=== PATIENT | male | born 1955 | race Caucasian/White ===

== ENCOUNTER 2021-10-10 08:16 | Outpatient (REF) | payer MEDICARE, BC, SELFPAY ==
--- NOTE | ~2021-10-10 | CT_ITS ---
EXAMINATION: CT ABDOMEN AND PELVIS WITHOUT AND WITH CONTRAST CLINICAL INFORMATION: Renal cyst COMPARISON: Previous renal ultrasound July 2021 TECHNIQUE: Multidetector volumetric imaging was performed of the abdomen and pelvis before and after the IV administration of 85 mL of 592 intravenous contrast. Sagittal and coronal reformatted images were obtained on the technologist's workstation. This CT examination was performed using dose optimization techniques as appropriate, variously including the following: *Automated exposure control *Adjustment of mA and/or kV according to patient size (this includes techniques or standardized protocols for targeted exams where dose is matched to indication/reason for exam; i.e. extremities or head) *Use of iterative reconstruction technique DLP: 592 mGy-cm FINDINGS: LUNG BASES: There is a 3 mm calcified right lower lobe nodule axial image 23 series 3 probably representing a calcified granuloma. The lung bases are otherwise clear. LIVER, GALLBLADDER, AND BILIARY TREE: The liver is normal in size, shape, and attenuation. No focal hepatic lesion or biliary ductal dilatation is present. The gallbladder is unremarkable with no evidence of radiopaque gallstones, gallbladder wall thickening, or obvious pericholecystic inflammatory changes. PANCREAS: Unremarkable SPLEEN: Unremarkable ADRENAL GLANDS: Unremarkable KIDNEYS AND URETERS: Both kidneys are small, right kidney measuring 9.4 and left 8.3 cm in length. There is a 1.5 x 1 cm cyst in the lower pole of the right kidney. This has a small focus of wall calcification. Hounsfield units precontrast measure 2. Hounsfield units postcontrast measure 9. This demonstrates no evidence of enhancement. There are additional smaller bilateral renal cortical cysts measuring up to 5 mm in the lower pole of the left kidney. No imaging follow-up is indicated. BLADDER: Unremarkable GASTROINTESTINAL TRACT: There is stool throughout the colon questionable for constipation. The small and large bowel are otherwise unremarkable. The appendix is is not seen. ABDOMINAL WALL: No significant hernia is appreciated. LYMPH NODES: Normal VASCULAR: Unremarkable PELVIC VISCERA: Unremarkable OSSEOUS STRUCTURES: Unremarkable CT/CT abdomen pelvis wo/w con IMPRESSION: Small kidneys. Multiple bilateral renal cysts. Largest cyst is a minimally complex Bosniak type II F cyst in the lower pole right kidney with small focus of wall calcification measuring 1 x 1.5 cm. Fleischner guidelines were followed.
[2021-10-10 10:18] LABS: Blood Urea Nitrogen 37 mg/dL (9-16); Estimated Glomerular Filt Rate 44
[2021-10-10] MEDS: iohexoL 350 MG/ML 100 ML INFUS..BTL 85 ML IV (11:39)
== END 2021-10-10 08:17 | disposition home or self-care (01) ==
LOC: HO.CT 08:16
PROVIDERS: Radiology Diagnostic Radiology; Visit Provider Family Medicine
DX: N28.1 Cyst of kidney, acquired (principal)
CPT/HCPCS: 36415; 74178; 82565; 84520; Q9967

== ENCOUNTER 2022-09-27 15:05 | Outpatient (REF) | payer MEDICARE, BC, SELFPAY ==
--- NOTE | ~2022-09-27 | XR_ITS ---
EXAMINATION: XR LUMBOSACRAL SPINE WITH OBLIQUES CLINICAL INFORMATION: Spinal stenosis with neurogenic claudication. COMPARISON: None available. TECHNIQUE: AP, both oblique, and lateral views of the lumbar spine. FINDINGS: There is bony demineralization. Vertebral body heights and alignment are normal. There is well-maintained alignment at L4-L5, status-post posterior fusion and discectomy. Intact posterior fixator rods, pedicular screws and a disc spacer are seen. Slight loosening is seen of one of the L4 pedicular screws. There is no hardware failure. The remaining disc spaces are well-maintained. There is multi-level mild lumbar spondylosis. There are mild aortic atherosclerotic calcifications. XR/XR lumbar spine 4V min IMPRESSION: 1. There is well-maintained alignment status-post L4-L5 posterior fusion and discectomies. No hardware failure is seen. Slight loosening is suspected of one of the L4 pedicular screws. 2. There is multi-level mild lumbar spondylosis.
== END 2022-09-27 15:06 | disposition home or self-care (01) ==
LOC: HO.HOSX 15:05
PROVIDERS: Visit Provider Neurological Surgery
DX: M48.062 Spinal stenosis, lumbar region with neurogenic claudication (principal); Z98.1 Arthrodesis status
CPT/HCPCS: 72110; 99211

== ENCOUNTER 2022-12-18 13:08 | Outpatient (REF) | payer MEDICARE, SELFPAY ==
--- NOTE | ~2022-12-18 | US_ITS ---
EXAMINATION: ARTERIAL DUPLEX BILATERAL LEGS CLINICAL INFORMATION: Peripheral arterial disease COMPARISON: None TECHNIQUE: Duplex Doppler of the bilateral lower extremity arterial systems was performed. FINDINGS: RIGHT: Common femoral: PSV 72 cm/s. Triphasic waveform. Deep femoral: PSV 51 cm/s. Biphasic waveform. Proximal superficial femoral: PSV 85 cm/s. Triphasic waveform. Mid superficial femoral: PSV 87 cm/s. Triphasic waveform. Distal superficial femoral: PSV 60 cm/s. Triphasic waveform. Popliteal: PSV 90 cm/s. Triphasic waveform. Posterior tibial: PSV 76 cm/s. Biphasic waveform. Peroneal: PSV 50 cm/s. Biphasic waveform. LEFT: Common femoral: PSV 90 cm/s. Triphasic waveform. Deep femoral: PSV 66 cm/s. Biphasic waveform. Proximal superficial femoral: PSV 106 cm/s. Triphasic waveform. Mid superficial femoral: PSV 69 cm/s. Biphasic waveform. Distal superficial femoral: PSV 60 cm/s. Biphasic waveform. Popliteal: PSV 69 cm/s. Triphasic waveform. Posterior tibial: PSV 82 cm/s. Biphasic waveform. Peroneal: PSV 50 cm/s. Biphasic waveform. US/US arterial duplex LE BI IMPRESSION: No evidence of hemodynamically significant peripheral arterial disease.
== END 2022-12-18 13:09 | disposition home or self-care (01) ==
LOC: HO.US 13:08
PROVIDERS: PCP Family Medicine; Visit Provider Family Medicine
DX: I73.9 Peripheral vascular disease, unspecified (principal)
CPT/HCPCS: 93925

== ENCOUNTER 2023-06-06 09:58 | Outpatient (REF) | payer MEDICARE, SELFPAY ==
[2023-06-06 14:28] LABS: MANUAL DIFF FLAG NO
[2023-06-06 14:32] LABS: Basophils Absolute Auto 0.1 X10*3/uL (0.0-0.2); Basophils Percent Auto 0.9 % (0-2); Eosinophils Absolute Auto 0.4 X10*3/uL (0.0-0.4); Eosinophils Percent Auto 5.6 % (0-4); Hemoglobin 14.1 g/dl (14.0-18.0); Imm Gran Abs Auto 0.03 X10*3/uL (0.00-0.03); Imm Gran Pct Auto 0.4 % (0.0-0.4); Lymphocytes Absolute Auto 1.6 X10*3/uL (1.2-4.9); Lymphocytes Percent Auto 20.6 % (20-40); Mean Corpuscular HGB Conc 32.8 g/dl (31.0-36.0); Mean Corpuscular Volume 97.7 fL (80.0-98.0); Monocytes Absolute Auto 0.7 X10*3/uL (0.1-1.2); Monocytes Percent Auto 8.5 % (2-11); Platelet Count 272 X10*3/uL (160-400); Red Cell Distribution Width 12.5 % (11.0-16.0); White Blood Count 7.8 X10*3/uL (4.8-10.8)
[2023-06-06 15:02] LABS: Alanine Aminotransferase 28 U/L (0-40); Albumin Level 4.5 g/dL (3.5-5.0); Alkaline Phosphatase 50 U/L (39-117); Anion Gap 10 (12-20); Aspartate Amino Transferase 27 U/L (5-37); Bilirubin Total 0.3 mg/dL (0.0-1.0); Blood Urea Nitrogen 39 mg/dL (9-16); Calcium 9.8 mg/dL (8.4-10.2); Carbon Dioxide 26 mmol/L (22-29); Chloride 106 mmol/L (96-108); Cholesterol 138 mg/dL (<200); Estimated Glomerular Filt Rate 47; Glucose Random 68 mg/dL (60-115); HDL Cholesterol 51 mg/dL (>40); LDL Cholesterol Calculated 62 mg/dL (<100); Potassium 4.3 mmol/L (3.3-5.1); Sodium 138 mmol/L (135-145); Total Protein 7.6 g/dL (6.5-8.0); Triglycerides 126 mg/dL (<150)
[2023-06-06 15:09] LABS: TSH reflex Free T4 1.39 uIU/mL (0.32-4.0)
== END 2023-06-06 09:59 | disposition home or self-care (01) ==
LOC: HO.CHCLDS 09:58
PROVIDERS: Visit Provider Family Medicine
DX: E11.69 Type 2 diabetes mellitus with other specified complication (principal)
CPT/HCPCS: 36415; 80053; 80061; 84443; 85025

== ENCOUNTER 2023-06-22 09:00 | Outpatient (REF) | payer MEDICARE, SELFPAY ==
[2023-06-22 15:07] LABS: Anion Gap 16 (12-20); Blood Urea Nitrogen 44 mg/dL (9-16); Calcium 10.2 mg/dL (8.4-10.2); Carbon Dioxide 25 mmol/L (22-29); Chloride 104 mmol/L (96-108); Estimated Glomerular Filt Rate 47; Glucose Random 55 mg/dL (60-115); Potassium 4.2 mmol/L (3.3-5.1); Sodium 141 mmol/L (135-145)
== END 2023-06-22 09:01 | disposition home or self-care (01) ==
LOC: HO.CHCLDS 09:00
PROVIDERS: Visit Provider Family Medicine
DX: N18.31 Chronic kidney disease, stage 3a (principal)
CPT/HCPCS: 36415; 80048

== ENCOUNTER 2024-12-05 08:51 | Outpatient (REF) | payer MEDICARE, SELFPAY ==
--- OUTSIDE RECORDS SUMMARY | 2024-07-07 07:00 | XMS_ITS ---
Author Organization [facility] Address [address] [place] [phone] Care Team Providers Care Wardrobe Supervisor Name Role Phone Mallory Ornelas Primary Care Provider Unavailab Melly Valencia Unavailable [phone] Arriaga Encounters Encounter Location Date Provider Diagnosis [address] [address] 07/07/2024 Melly Armenta Plan Of Treatment Next Appt Details Provider Name:Melly Ramos Geovany , 01/26/2025 03:00:00 PM, [address] [place] [address], [phone], Progress Notes * Michele AMATO EDOB:1955 (69 yo M)Acc No.[id number]:07/07/2024 Progress Note Patient: Annmarie Michele PINEDA Provider: Reji Armenta DPM :1955 A ge:68 Y S ex:Male Date:07/07/2024 Address:[address] [place] [address] juanjo [phone] Pcp:Mallory Ornelas Subjective: * Chief Complaints: * [...] 0 07/07/2024 Generated for Eduardo Villatoro on: 0 12/05/2024 09:11 AM EDT
--- OUTSIDE RECORDS SUMMARY | 2024-12-05 09:11 | XMS_ITS | Encounter Summary ---
Author Organization [facility] Address [address] [place] [address] Care Team Providers Care Customer Program Manager Name Role Phone Mallory Ornelas MD Primary Care Provider [phone] Encounter Details Date Type Department Care Team (Late st Contact Info) Description 04/28/2022 Orders Only [facility] [address] [place], [place] [phone] Mallory Ornelas MD [address] [place], [place] [phone] Transaminitis (Primary Dx) Social History Tobacco Use Types Packs/Day Years Used Date Smoking Tobacco: Never Passive Smoke Exposure: Never Smokeless Tobacco: Never Sex and Gender Information Value Date Recorded Sex Assigned at Male 02/20/2022 10:39 AM EDT Legal Sex Male 10:39 AM EDT Gender Identity Male 02/20/2022 10:39 AM EDT Sexual Orientation Straight 02/20/2022 10 :39 AM EDT COVID-19 Exposure Response Date Recorded In the last 10 days, have yo u been in contact with someone who was confirmed or suspected to have Coronavirus/COVID-19? No / Unsure 05/01/2022 10:07 AM EST documented as of this encounter Plan of Treatment Not on file documented as of this encounter Procedures Procedure Name Priority Date/Time Associated Diagnosis Comments COMPREHENSIVE METABOLIC PANEL Routine 05/09/2022 9:43 AM EST Transaminitis documented in this encounter Results * (ABNORMAL) Comprehensive Metabolic Panel (05/09/2022 9:43 AM EST) Glucose 107(H) 65 - 99 mg/dL [facility] Comment: Fasting reference interval For someone without known diabetes, a glucose value between 100 and 125 mg/dL is consistent with prediabetes and should be confirmed with a follow-up test. Urea Nitrogen (BUN) 49(H) 7 - 25 mg/dL [facility] Creatinine, Serum 1.35 0.70 - 1.35 mg/dL [facility] eGFR 57(L) > OR = 60 mL/min/1. 73m2 [facility] Comment: The eGFR is based on the CKD-EPI 2020 equation. To calculate the new eGFR from a previous Creatinine or Cystatin C result, go to https://www.kidney.org/professionals/ kdoqi/gfr%5Fcalculator BUN/Creatinine Ratio 36(H) 6 - 22 (calc) [facility] Sodium 136 135 - 146 mmol/L [facility] Potassium 4.8 3.5 - 5.3 mmol/L [facility] Chloride 100 98 - 110 mmol/L [facility] Carbon Dioxide 29 20 - 32 mmol/L [facility] Calcium 9.9 8.6 - 10.3 mg/dL [facility] Protein, Total 7.1 6.1 - 8.1 g/dL [facility] Albumin 4.8 3.6 - 5.1 g/dL [facility] Globulin 2.3 1.9 - 3.7 g/dL (calc) [facility] Albumin/Globuli n Ratio 2.1 1.0 - 2.5 (calc) [facility] Bilirubin, Total 0.5 0.2 - 1.2 mg/dL [facility] Alkaline Phosphatase 97 35 - 144 U/L [facility] AST 25 10 - 35 U/L [facility] ALT 29 9 - 46 U/L [facility] Blood Venous blood specimen / Unknown 05/09/2022 9:43 AM EST 05/09/2022 9:43 AM EST us Mallory Ornelas MD LAB BLOOD ORDERABLES Final Re sult [facility] [address] [place] [address] [facility] [address], ([address]) [place] [address] documented in this encounter Visit Diagnoses Diagnosis Transaminitis- Primary Nonspecific elevation of levels of transaminase or lactic acid dehydrogenase (LDH) documented in this encounter Care Teams Customer Program Manager Relationship Specialty Start Date End Date Mallory Ornelas MD [address] [place] [id number] PCP - General Family Medicine 06/23/21 documented as of this encounter
--- OUTSIDE RECORDS SUMMARY | 2024-12-05 09:11 | XMS_ITS | Clinical Summary ---
Author Organization [facility] Address [address] [place] [address] Care Team Providers Care Public Policy Analyst Name Role Phone German Johnson MD Primary Care Provider [phone] Allergies Active Allergy Reactions Criticality Noted Date Comments Cephalexin 01/16/2006 Other Reaction(s): Hives/Urticaria Other 07/18/2006 Tdap [Daptacel] - no t-dap pt has seizure disorder.per vis sheet.td ok Medications atorvastatin (LIPITOR) 80 mg tablet Take 80 mg by mouth daily. 2 Active dapagliflozin propanediol (Farxiga) 10 mg tablet Take 10 mg by mouth daily. 2 Active lisinopriL (PRINIVIL,ZESTRI L) 2.5 mg tablet Take 2.5 mg by mouth daily. 2 Active aspirin 81 mg EC tablet Take 81 mg by mouth daily. Active vitamin B complex (B COMPLEX ORAL) Take by mouth. A ctive cholecalciferol (VITAMIN D-3) 1,250 mcg (50,000 unit) capsule Take by mouth. Activ e cetirizine (ZyrTEC) 10 mg tablet TAKE 1 TABLET BY MOUTH EVERY DAY 2 Active metFORMIN (GLUCOPHAGE) 500 mg tablet TAKE 1 TABLET BY MOUTH EVERY DAY 2 Active bisacodyL (DULCOLAX) 5 mg EC tablet Take 4 tablets by mouth right before your first dose of liquid prep. 1 Active fluticasone propionate (FLONASE) 50 mcg/actuation nasal spray 2 Sprays by Nasal route daily. 1 Active carBAMazepine XR (TEGretol XR) 400 mg 12 hr tablet Take 1 Tab by mouth 2 times daily. 0 Active albuterol HFA (PROAIR HFA ; PROVENTIL HFA ; VENTOLIN HFA) 90 mcg/actuation inhaler Inhale 2 Puffs into the lungs 4 times daily as needed for Cough, Wheezing or Shortness of Breath. 9 Active Active Problems Problem Noted Date Diagnosed Date Type 2 diabetes mellitus wit h diabetic nephropathy ([facility] [place], [facility] [place] 08/12/2018 Acute gout due to renal impairment involving rig ht foot 11/03/2017 Neuropathy 05/02/2016 EVANGELINA (obstructive sleep apnea) 04/05/2015 Overview (04/22/2024): On CPAP provided by [facility] [place] infusion 06/2018 Home Sleep Study did not reveal sleep apnea. ? 15# Weight loss resolved episodes. 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 Was using only one tab per day for years before that Immunizations Name Administration Dates Next Due Influenza Quadravalent, MDCK , 0.5ml, preservative free (Flucelvax) 6mo and older 03/21/2018 Influenza trivalent, 0.5mL ( Fluzone High-dose) 65yo and older 03/14/2021,02/01/2021,02/19/2019 Influenza trivalent, with pr eservative (Fluzone; Afluria) 6mo and older 01/07/2016,04/05/2015,04/03/2014,02/12,03/05/2012,03/27/2011,12/31/2009 ,02/05/2007 Influenza, Unspecified 12/18/2019,12/04/2016 PPD Test 03/08/2001,03/06/2001 [employer] SARS-CoV-2 COVID-19, mRNA, LNP-S, preservative free 02/01/2021 Pneumococcal polysaccharide 23 valent (Pneumovax 23) 2yo and older 10/15/2013 Td Tetanus diptheria (Tdvax) 7yo and older 07/18/2006 Tdap Tetanus diptheria acell ular pertussis (Boostrix; Adacel) 7yo and older 05/21/2017 Surgical History Surgery Date Site/Laterality Comments NASAL SEPTUM SURGERY PROCEDURE: HI REPAIR NASAL SEPTAL PERFORATIONS COLONOSCOPY 12/31/2006 PROCEDURE: HISTORICAL COLONOSCOPY; COMMENT: large hemorrhoids. Repeat in ten years OTHER SURGICAL HISTORY 03/07/2017 PROCEDURE: COLON CA SCRN NOT HI RSK IND; COMMENT: sessile serrated adenoma and hemorrhoids; repeat in 3 yrs Medical History Medical History Date Comments Unspecified disorder of kidn ey and ureter 05/01/2006 DX:Unspecified disorder of k idney and ureter Other and unspecified hyperlipidemia 04/27/2006 DX:Other and unspecified hyperlipidemia Other convulsions 04/10/2006 DX:Other convu lsions Essential hypertension, benign 04/10/2006 D X:Essential hypertension, benign Historical Medical DX 03/08/2007 DX:Other a nd unspecified malignant neoplasm of skin of other and unspecified parts of face Family History Medical History Relation Name Comments No Known Problems Brother No Known Problems Daughter No Known Problems Father No Known Problems Mother No Known Problems Other No Known Problems Sister No Known Problems Son Autoimmune disease Neg Hx Breast cancer Neg Hx Colon cancer Neg Hx Coronary artery disease Neg Hx Diabetes Neg Hx Heart attack Neg Hx Heart failure Neg Hx Hyperlipidemia Neg Hx Hypertension Neg Hx Mental illness Neg Hx Prostate cancer Neg Hx Sleep apnea Neg Hx Thyroid disease Neg Hx Relation Name Status Comments Brother Alive Daughter Alive Father CAD Mother dm, parkinsons Other Sister Alive Breast Cancer Son Alive Social History Tobacco Use Types Packs/Day Years Used Date Smoking Tobacco: Former Cigarettes Q uit: 04/23/1976 Smokeless Tobacco: Never Alcohol Use Standard Drinks/Week Comments Yes 0 (1 standard drink = 0.6 oz pur e alcohol) Sex and Gender Information Value Date Recorded Sex Assigned at Not on file Legal Sex Male 2:41 AM EST Gender Identity Not on file Sexual Orientation Not on file Obstetrics History Last Filed Vital Signs Vital Sign Reading Time Taken Comments Blood Pressure - - Pulse - - Temperature - - Respiratory Rate - - Oxygen Saturation - - Inhaled Oxygen Concentration - - Weight 71.2 kg (157 lb) 12/29/2021 1:19 PM EDT Height - - Body Mass Index - - Plan of Treatment Health Maintenance Due Date Last Done Comments Diabetes: Annual Foot Exam 08/10/1963 Diabetes: Annual Retina Eye Exam 08/10/1963 Zoster Vaccines (1 of 2) 1972 RSV Immunization Adult Patients (1 - Risk 60-74 years 1-dose series) 2013 Pneumococcal Vaccine: 50+ Years (2 of 2 - PCV) 10/15/2014 10/15/2013 COVID-19 Vaccine (2 - Pfizer risk series) 02/22/2021 02/01/2021 Diabetes: Annual GFR (Glomerular Filtration Rate) 12/13/2021 12/13/2020 Abdominal Aortic Aneurysm (AAA) Screen 03/26/2022 Falls Risk Assessment 03/26/2022 Social Influencers of Health Screening 03/26/2022 Diabetes: Blood Sugar Control Test (HGBA1C) 04/11/2022 12/13/2020 Hypertension/CHF/CAD Annual BMP Blood Test 04/11/2022 12/13/2020 Depression Screening 04/23/2024 Influenza Vaccine (#1) 2024 , 02/01/2021, 12/18/2019, Additional history exists Diabetes: Annual Urine Albumin-Creatinine Ratio (uACR) 05/06/2025 05/06/2024, 12/13/2020 Cholesterol Screening (Lipid Panel) 08/31/2025 08/31/2020 DTaP,Tdap,and Td Vaccines (3 - Td or Tdap) 05/21/2027 05/21/2017, 07/18/2006 Colorectal Cancer Screening: Colonoscopy 02/24/2031 02/24/2021 Hepatitis C Screening Completed 06/11/2013 HIB Vaccines Aged Out No longer eligi ble based on patient's age to complete this topic HPV Vaccines Aged Out No longer eligi ble based on patient's age to complete this topic Hepatitis A Vaccines Aged Out No long er eligible based on patient's age to complete this topic Hepatitis B Vaccines Aged Out No long er eligible based on patient's age to complete this topic IPV Vaccines Aged Out No longer eligi ble based on patient's age to complete this topic MMR Vaccines Aged Out No longer eligi ble based on patient's age to complete this topic Meningococcal ACWY Vaccine Aged Out N o longer eligible based on patient's age to complete this topic Meningococcal B Vaccine Aged Out No l onger eligible based on patient's age to complete this topic RSV Immunization Patients Under 20 months Aged Out No longer eligible based on patient's age to complete this topic Varicella Vaccines Aged Out No longer eligible based on patient's age to complete this topic Procedures Procedure Name Priority Date/Time Associated Diagnosis Comments COLONOSCOPY Routine 02/24/2021 URINE ALBUMIN CREATININE RATIO Routine 12/13/2020 ANNUAL BMP BLOOD TEST Routine 12/13/2020 HEMOGLOBIN A1C Routine 12/13/2020 LIPID PANEL Routine 08/31/2020 HEPATITIS C SCREENING Routine 06/11/2013 from Last 3 Months or Most Recently Relevant to Health Maintenance Results * Colonoscopy (02/24/2021) Colonoscopy No interpretation , Abstracted Anatomical Region Laterality Modality Other us Historical Provider MD HEALTH MAINTENANCE Final Result * Urine Albumin Creatinine Ratio (12/13/2020) Urine Albumin Creatinine Ratio Abstracted [facility] Provider HEALTH MAINTENANCE Final Result * Annual BMP Blood Test (12/13/2020) [facility] Annual BMP Blood Test Abstracted Result [facility] Provider HEALTH MAINTENANCE Final Result * (ABNORMAL) Hemoglobin A1c (12/13/2020) [facility] Hemoglobin A1C 6.6(A) <=6.5 % Blood Venous blood specimen / Unknown Result [facility] Provider LAB BLOOD ORDERABLES Estefani l Result * (ABNORMAL) Lipid panel (08/31/2020) [facility] LDL/HDL Ratio 4 0 - 4 Triglycerides 331(A) 0 - 150 mg/dL Cholesterol 201(A) 0 - 200 mg/dL HDL 47 >=40 mg/dL LDL Cholesterol 88 0 - 100 mg/dL Blood Venous blood specimen / Unknown Result [facility] Provider LAB BLOOD ORDERABLES Estefani l Result * Hepatitis C Screening (06/11/2013) [facility] Hepatitis C Screening Abstracted Result [facility] Provider HEALTH MAINTENANCE Final Result from Last 3 Months or Most Recently Relevant to Health Maintenance Care Teams Public Policy Analyst Relationship Specialty Start Date End Date German Johnson MD [address] [place] [address] PCP - General Internal Medicine 04/15/20
--- OUTSIDE RECORDS SUMMARY | 2024-12-05 09:11 | XMS_ITS | Clinical Summary ---
Author Organization [facility] Address [address] [place] [address] Care Team Providers Care Mining Analyst Name Role Phone German Johnson MD Primary Care Provider [phone] Social History Tobacco Use Types Packs/Day Years Used Date Smoking Tobacco: Never Assessed Sex and Gender Information Value Date Recorded Sex Assigned at Not on file Gender Identity Not on file Sexual Orientation Not on file Job Start Date Occupation Industry Not on file Not on file Not on file Plan of Treatment Health Maintenance Due Date Last Done Comments Hepatitis C Screening 1955 COVID-19 Vaccine (#1) 02[birth year]08/1954 Depression Screening 1965 Preventative Health Evaluation 08/10/1971 DTap / Tdap / Td (1 - Tdap) 1972 Colon Cancer Screening (Colonoscopy) 1998 Shingrix-Zoster Vaccine (1 of 2) 08/10/2003 Fall Risk Assessment 2018 Pneumococcal Vaccine (1 of 1 - PCV) 2018 Influenza Vaccine (#1) 2024 RSV Adult > 60+ Yrs or Pregn ant (1 - 1-dose 75+ series) 2028 Hepatitis B Vaccines Aged Out No long er eligible based on patient's age to complete this topic RSV Ped < 20 months Aged Out No longe r eligible based on patient's age to complete this topic Care Teams Mining Analyst Relationship Specialty Start Date End Date German Johnson MD PCP - General Internal Medicine 04/15/20
--- OUTSIDE RECORDS SUMMARY | 2024-12-05 09:12 | XMS_ITS ---
Author Name [facility] Care Team Organization Name Specialty Phone Email Start Date End Da te [facility] Johnson Primary Care 02/28/2022 12/10/2023
--- OUTSIDE RECORDS SUMMARY | 2024-12-05 09:12 | XMS_ITS | Clinical Summary ---
Author Organization [facility] Address [address] [place] [address] [address] [place] [address] Phone Care Team Providers Care Pyrotechnic Mixer Name Role Phone Mallory Ornelas MD Primary Care Provider [phone] Allergies Active Allergy Reactions Criticality Noted Date Comments Cephalexin 06/20/2021 Diphth-Acell Pertussis-Tetanus 07/18/2006 no t-dap pt has seizure disorder.per vis sheet.td ok Medications loratadine (CLARITIN) 10 MG tablet Take 10 mg by mouth 01/08/20 12 Active lisinopril 5 MG tablet Take 2.5 mg by mouth 1 (one) time each day 03/26/20 21 Active TRUEplus Lancets 33G misc TEST BLOOD SUGAR DAILY DIRECTED 06/07/19 22 Active FREESTYLE LITE test strip TEST BLOOD SUGAR DAILY DIRECTED 06/07/19 22 Active Trulicity 0.75 MG/0.5ML solution pen-injector INJECT ONE PEN (=0.75MG) SUBCUTANEOUSLY ONCE A WEEK DIRECTED 05/31/19 22 Active cetirizine (ZyrTEC) 10 MG tablet TAKE ONE TABLET DAILY NEEDED 06/01/19 22 Active carBAMazepine XR (TEGretol XR) 400 MG 12 hr tablet Take 300 mg by mouth 03/21/20 21 Active atorvastatin (LIPITOR) 40 MG tablet Take 40 mg by mouth 1 (one) time each day 03/26/20 21 Active Aspirin Low Dose 81 MG EC tablet 81 mg 1 (one) time each day 06/24/19 22 Active Sodium Zirconium Cyclosilicate 5 g pack Take 5 g by mouth 3 times weekly: Sun and Sunday morning 15 each 11 05/09/19 25 026 Active Sodium Zirconium Cyclosilicate (Lokelma) 5 g pack Take by mouth Active Farxiga 10 MG tablet TAKE ONE TABLET DAILY 90 tablet 3 06/25/19 25 Active Active Problems Problem Noted Date Diagnosed Date Stage 3b chronic kidney disease 10/30/2022 Insomnia 04/25/2022 Overview (10/30/2022): Last Assessment & Plan: In the setting of nocturia and discomfort, reports slept well last night. Will need to monitor and assess if symptoms continues. Spinal stenosis of lumbar region 04/25/2022 Overview (10/30/2022): Last Assessment & Plan: Sp surgery, reports doing well post operatively, looking forward to advance in his movement. Doing home PT and recommended exercises, walking with the assistance of a cane to help balancing. 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 ? 15# Weight loss resolved episodes. Allergic asthma 02/12/2013 Microalbuminuria 12/27/2012 Body mass index 25-29 - overweight 07/22/2009 Anal fissure 05/02/2007 Basal cell carcinoma of face 04/01/2007 Overview (10/30/2022): BCC 02/27 Right cheek (nodular/ulcerated) History of malignant neoplasm of skin 04/01/2007 Overview (10/30/2022): BCC right cheek, 02/27. Benign essential hypertension 04/10/2006 Immunizations Immunization Administration Dates Next Due Hepatitis B 06/05/2022,05/01/2022 Influenza Split High Dose Pr eservative Free IM 03/14/2021,02/01/2021,02/19/2019 Influenza, MDCK, PF, Quadrivalent 03/21/2018 Influenza, Quadrivalent, Pre servative Free 12/04/2016 Influenza, Unspecified 01/27/2022,2019,12/04/2016,01/06,04/05/2015,04/03/2014,02/12/2013 ,03/05/2012,03/27/2011,12/31/2009,01/21 PPD Test 03/08/2001,03/06/2001 Pfizer SARS-COV-2 10/08/2021,,07/27/2020,07/06 Pneumococcal Conjugate Pcv 20 10/03/2021 Pneumococcal Polysaccharide 07/28/2018, 4 Shingrix 10/03/2021,08/01/2021 Td 07/18/2006,07/19/2003 Tdap 05/21/2017 Family History Medical History Relation Comments Diabetes Sister Relation Status Comments Sister Social History Tobacco Use Types Packs/Day Years Used Date Smoking Tobacco: Never Assessed Tobacco Cessation:Counseling Given: Not Answered Alcohol Use Standard Drinks/Week Comments Never 0 (1 standard drink = 0.6 oz pur e alcohol) Sex and Gender Information Value Date Recorded Sex Assigned at Male 02/09/2022 8:59 AM EDT Legal Sex Male 10:04 AM EST Gender Identity Male 02/09/2022 8:59 AM EDT Sexual Orientation Straight 02/09/2022 8: 59 AM EDT Last Filed Vital Signs Vital Sign Reading Time Taken Comments Blood Pressure 118/72 05/26/2024 12:56 PM EST Pulse 70 05/26/2024 12:56 PM EST Temperature - - Respiratory Rate - - Oxygen Saturation 97% 05/26/2024 12:56 PM EST Inhaled Oxygen Concentration - - Weight 73.6 kg (162 lb 3.2 oz) 05/26/2024 12:56 PM EST Height - - Body Mass Index - - Plan of Treatment Health Maintenance Due Date Last Done Comments Colorectal Cancer Screening: Annual FOBT 2002 Colorectal Cancer Screening: Colonoscopy 2002 Colorectal Cancer Screening: Sigmoidoscopy 2002 Diabetes: Ophthalmology Exam 06/15/2021 Diabetes: Pedal Pulse Checked 06/15/2021 Diabetes: Sensory Foot Exam 06/15/2021 Diabetes: Visual Foot Exam 06/15/2021 Diabetes: Hemoglobin A1C 05/02/2024 024, 05/23/2021, 12/13/2020 Influenza Vaccine (#1) 2024 4, 04/23/2023, 02/21/2023, Additional history exists Pneumococcal Vaccine: 50+ Years Completed 10/03/2021, 07/28/2018, 10/15/2013 Hepatitis B Vaccine Aged Out 03/13/2023, 06/05/2022, 05/01/2022 No longer eligible based on patient's age to complete this topic Procedures Procedure Name Priority Date/Time Associated Diagnosis Comments EXT RESULT ENTRY Routine 05/23/2021 from Last 3 Months or Most Recently Relevant to Health Maintenance Results * (ABNORMAL) EXT RESULT ENTRY (05/23/2021) WBC 5.9 3.3 - 10.0 10*3/ML Red Blood Cell Count 4.15 Hemoglobin 13.1(A) 13.5 - 17.5 Hematocrit 39.4(A) 41.0 - 53.0 Platelets 225 150 - 399 10*3/UL MCV 94.9 82.0 - 108.0 Sodium 134(A) 137 - 147 Potassium 5.6(A) 3.4 - 5.5 Chloride 100.0 99.0 - 108.0 BUN 34(A) 4 - 21 mg/dL Creatinine 1.54(A) 0.60 - 1.30 mg/dL Albumin 4.6 3.5 - 5.0 g/dL Calcium 9.5 8.7 - 10.7 mg/dL eGFR Non-Afr German 46 Hemoglobin A1C 9.7(A) 4.0 - 6.0 Triglycerides 346(A) 40 - 160 05/23/2021 Historical Provider LAB BLOOD ORDERABLES Estefani l Result from Last 3 Months or Most Recently Relevant to Health Maintenance Insurance Medicare [facility] Medicare [facility] Care Teams Pyrotechnic Mixer Relationship Specialty Start Date End Date Mallory Ornelas MD PCP - General Family Medicine 06/20/21
[2024-12-05 14:47] LABS: Alanine Aminotransferase 46 U/L (0-40); Albumin Level 5.0 g/dL (3.5-5.0); Alkaline Phosphatase 48 U/L (39-117); Aspartate Amino Transferase 43 U/L (5-37); Cholesterol 158 mg/dL (<200); HDL Cholesterol 43 mg/dL (>40); Total Protein 7.6 g/dL (6.5-8.0); Triglycerides 193 mg/dL (<150)
[2024-12-05 15:11] LABS: Folate 13.4 ng/mL (> or = 4.0); Vitamin B12 582 pg/mL (200-900)
== END 2024-12-05 08:52 | disposition home or self-care (01) ==
LOC: HO.CHCLDS 08:51
PROVIDERS: Visit Provider Pediatrics
DX: Z00.00 Encounter for general adult medical examination without abnormal findings (principal); E11.69 Type 2 diabetes mellitus with other specified complication; Z12.5 Encounter for screening for malignant neoplasm of prostate
CPT/HCPCS: 36415; 80061; 80076; 82607; 82746; 84153; 84443

== ENCOUNTER 2025-04-22 08:34 | Outpatient (REF) | payer MEDICARE, SELFPAY ==
--- OUTSIDE RECORDS SUMMARY | 2024-07-07 06:00 | XMS_ITS ---
Author Organization [facility] Address [address] [place] [id number] Care Team Providers Care Estate Planning Director Name Role Phone Mallory Ornelas Primary Care Provider Unavailab Melly Valencia Unavailable [phone] Arriaga Encounters Encounter Location Date Provider Diagnosis [address] [phone] 07/07/2024 Melly Armenta Plan Of Treatment Next Appt Details Provider Name:Melly Ramos Geovany , 05/21/2025 03:00:00 PM, [address] [place] [address], [phone], Progress Notes * Michele AMATO EDOB:1955 (69 yo M)Acc No.[id number]:07/07/2024 Progress Note Patient: Annmarie Michele PINEDA Provider: Reji Armenta DPM :1955 A ge:68 Y S ex:Male Date:07/07/2024 Address:[address] [place] [address] juanjo [phone] Pcp:Mallory Ornelas Subjective: * Chief Complaints: * [address] Arriaga. * Medical History: Objective: * Vitals: Assessment: Plan: * Treatment: * Images: * The named appointment provid er may or may not be the originator of this progress note, and it is not deemed complete until electronically signed by the appointment provider. Sign off status: Pending * Provider: Reji Armenta DPM Date: 0 07/07/2024 Generated for Eduardo Villatoro on: 1 08:42 AM EST
--- OUTSIDE RECORDS SUMMARY | 2025-04-20 16:00 | XMS_ITS | Encounter Summary ---
Author Organization [employer] Address [address] [place] [address] Care Team Providers Care Sewer Separation Designer Name Role Phone Mallory Ornelas MD Primary Care Provider [phone] Reason for Visit * Reason Comments Follow-up Encounter Details Date Type Department Care Team ([facility] Contact Info) Description 04/20/2025 4:00 PM EST Office Visit [facility] [address] [place] [address] Mallory Ornelas MD [address] [place] [address] Type 2 diabetes mellitus with other specified complication, unspecified whether exterminator insulin use (HCC) (Primary Dx); Encounter for immunization Social History Tobacco Use Types Packs/Day Years Used Date Smoking Tobacco: Former Cigarettes Passive Smoke Exposure: Never Smokeless Tobacco: Never Alcohol Use Standard Drinks/Week Comments Never 0 (1 standard drink = 0.6 oz pur e alcohol) Alcohol Answer Date Recorded Frequency of Alcohol Consumption Not on file 01/31/2024 Average Number of Drinks Not on file 024 Frequency of Binge Drinking Not on file 01/21 Score 0 01/31/2024 Depression Answer Date Recorded Patient Health Questionnaire-9 Score 0 12/04/2024 Patient Health Questionnaire-9 Score 0 12/04/2024 Last PHQ-9: Questionnaire Data Not on file 0 12/04/2024 Housing Stability Answer Date Recorded What is your housing situation today? I have brendan novak 11/25/[address] you li ve. Do you have problems with any of the following? None of the above 11/25/2024 Food Insecurity Answer Date Recorded Within the past 12 months, y ou worried that your food would run out before you got money to buy more: Never True 11/25/2024 Within the past 12 months,th e food you bought just didn't last and you didn't have enough money to get more: Never True 08/2024 Transportation Answer Date Recorded In the past 12 months, has l ack of transportation kept you from medical appts, meetings, work or from getting things needed for daily living? No 11/25/2024 Utilities Answer Date Recorded In the past 12 months, has t he electric, gas, oil or water company threatened to shut off services in your home? No 11/25/2024 Depression Answer Date Recorded Patient Health Questionnaire-2 Score 0 12/04/2024 Internet Access Answer Date Recorded Internet Access Q1 Yes 11/25/2024 Internet Access Q2 Not on file 11/25/2024 Sex and Gender Information Value Date Recorded Sex Assigned at Male 02/20/2022 10:39 AM EDT Legal Sex Male 10:39 AM EDT Gender Identity Male 02/20/2022 10:39 AM EDT Sexual Orientation Straight 02/20/2022 10 :39 AM EDT documented as of this encounter Last Filed Vital Signs Vital Sign Reading Time Taken Comments Blood Pressure 115/79 04/20/2025 4:00 PM EST Pulse 60 04/20/2025 4:00 PM EST Temperature 36.8 C (98.2 F) 04/20/2025 4:00 PM EST Respiratory Rate 20 04/20/2025 4:00 PM EST Oxygen Saturation 98% 04/20/2025 4:00 PM EST Inhaled Oxygen Concentration - - Weight 70.4 kg (155 lb 3.2 oz) 04/20/2025 4:00 P M EST Height 160 cm (5' 3 ) 04/20/2025 4:00 PM EST Body Mass Index 27.49 04/20/2025 4:00 PM EST documented in this encounter Progress Notes * Lady Madden MA - 04/20/2025 4:00 PM EST nn * Mallory Onrelas MD - 04/20/2025 4:00 PM EST Subjective Patient ID: Jaiden Amato Jr is a 69 y.o. male who presents for Follow-up. Jaiden Amato Jr presents for routine follow-up of his diabetes mellitus and other chronic conditions. He reports his recent hemoglobin A1C is 6.9, which he acknowledges is slightly above his goal of6.5 but notes it is still less than 7. He has been monitoring his blood glucose levels at home withfasting readings, reporting most values are appropriate though he had some elevated readings including 136, 130, and one reading of 223. He attributes some of the higher readings to dietary indiscretions, specifically mentioning pizza during a Thanksgiving trip to [place] to visit his son, yani when dining out, and half a donut which caused his glucose to rise from 80 to 187. He uses a continuous glucose sensor intermittently and is aware when his numbers are elevated. The patient continues on Trulicity 1.5 units for diabetes management and reports good adherence to his medications. He has been seeing his kidney doctor as recommended and acknowledges he should be taking Lokelma packets on Sunday, Sunday, and Sunday as prescribed. He completed his annual eye examination as recommended for diabetic monitoring. He reports a recent trip and mentions plans to travel to [place] in July. He received his flu shot for this season and his most recent COVID vaccination was in June. He has not been using his CPAP machine for some time, stating he doesn't need it anymore. He mentions having some nasal congestion issues in the past for which he used nasal spray and Cetirizine, but currently does not have any cold symptoms. The patient denies current use of metformin for his diabetes management. Review of Systems Neurological: Positive for diminished sensation in feet, negative for vibration sensation in feet. Review of Systems Objective BP 115/79 Pulse 60 Temp 98.2 ??F (36.8 ??C) (Oral) Resp 20 Ht 5' 3 (1.6 m) Wt 155 lb 3.2oz (70.4 kg) SpO2 98% BMI 27.49 kg/m?? Physical Exam Constitutional: General: He is not in acute distress. Appearance: He is normal weight. HENT: Head: Normocephalic. Nose: Nose normal. Mouth/Throat: Mouth: Mucous membranes are moist. Eyes: Extraocular Movements: Extraocular movements intact. Pupils: Pupils are equal, round, and reactive to light. Cardiovascular: Rate and Rhythm: Normal rate and regular rhythm. Pulses: Dorsalis pedis pulses are detected w/ Doppler on the right side and 2+ on the left side. Posterior tibial pulses are detected w/ Doppler on the right side and 2+ on the left side. Heart sounds: Normal heart sounds. No murmur heard. Pulmonary: Effort: Pulmonary effort is normal. Breath sounds: Normal breath sounds. Abdominal: General: Bowel sounds are normal. There is no distension. Palpations: Abdomen is soft. There is no mass. Tenderness: There is no abdominal tenderness. There is no guarding. Musculoskeletal: General: Normal range of motion. Right lower leg: No edema. Left lower leg: No edema. Right foot: Normal range of motion. No deformity, bunion, Charcot foot or prominent metatarsal heads. Left foot: Normal range of motion. No deformity, bunion, Charcot foot or prominent metatarsal heads. Feet: Right foot: Protective Sensation: 7 sites tested. 7 sites sensed. Skin integrity: Skin integrity normal. No ulcer, blister, skin breakdown, erythema, warmth, callus or dry skin. Toenail Condition: Right toenails are normal. Left foot: Protective Sensation: 7 sites tested. 7 sites sensed. Skin integrity: Skin integrity normal. No ulcer, blister, skin breakdown, erythema, warmth, callus or dry skin. Toenail Condition: Left toenails are normal. Skin: Capillary Refill: Capillary refill takes less than 2 seconds. Findings: No rash. Neurological: Mental Status: He is oriented to person, place, and time. Psychiatric: Mood and Affect: Mood normal. Behavior: Behavior normal. Assessment/Plan Problem List Items Addressed This Visit Diabetes mellitus (HCC) - Primary Relevant Orders POCT Glucose (Completed) POCT Hgb A1c (Completed) CBC auto differential Comprehensive Metabolic Panel Lipid Panel, Standard Albumin, Random Urine W/Creatinine Other Visit Diagnoses Encounter for immunization Relevant Orders COVID-19 VACCINE [id number] (Comirnaty) 19 yrs + (Completed) Jaiden Amato Jr presents for routine diabetes follow-up with recent HbA1c of 6.9% and review of multiple chronic conditions. Type 2 diabetes mellitus Assessment: Patient demonstrates good glycemic control with HbA1c of 6.9%, which is below the target of 7% though slightly above the ideal goal of 6.5%. Home glucose monitoring shows mostly well-controlled readings with occasional elevations to 130-136 mg/dL and one spike to 223 mg/dL following dietary indiscretions (pizza, spaghetti, donut). Physical examination reveals diminished vibration sensation in his feet and a small cut noted on foot examination. Doppler examination confirmed presence of pedal pulses bilaterally, though pulses were difficult to palpate manually due to cold feet. Plan: - Continue current Trulicity 1.5 mg - Continue Farxiga as prescribed by Dr. Mcgowan - Order comprehensive metabolic panel, lipid panel, HbA1c, and random urine for microalbumin in April (fasting required for cholesterol) - Recheck HbA1c in 3 months to maintain tighter observation before his [place] trip in July - Patient counseled on foot care given diminished sensation and presence of small cut - Annual eye examination completed Hyperlipidemia Assessment: Patient on dual cholesterol therapy with rosuvastatin and fenofibrate for lipid management. Plan: - Continue rosuvastatin - Continue fenofibrate - Recheck lipid panel in April (fasting required) Hypertension Assessment: Blood pressure well controlled on current regimen. Plan: - Continue lisinopril 2.5 mg Chronic kidney disease Assessment: Patient on Lokelma as prescribed by nephrology for potassium management, though he admits to inconsistent adherence. Plan: - Continue Lokelma 5 gram packets Sunday, Sunday, Sunday as prescribed by kidney doctor - Patient counseled on importance of adherence - Recheck kidney function in April Neuropathy Assessment: Patient continues on carbamazepine therapy with neurologist Dr. Talisha Crump for neuropathic symptoms. Plan: - Continue carbamazepine 200 mg and 300 mg as prescribed - Continue follow-up with neurology Allergic rhinitis Assessment: Patient reports no current cold symptoms and requests continuation of nasal spray therapy. Plan: - Prescribe Flonase 50 mcg - Continue cetirizine Preventive care Assessment: Patient up to date with flu vaccination. Last COVID-19 vaccination was July 21 of current year. He is planning travel to [place] in July 2024. Plan: - Administer COVID-19 vaccination for [id number] season given his upcoming international travel - Continue vitamin D supplementation - Continue vitamin B complex - Continue atorvastatin 80 mg - Continue aspirin 81 mg - Continue cod liver oil (Jordanian brand) Follow-up in 3 months to recheck HbA1c before his [place] trip in July. documented in this encounter Plan of Treatment Scheduled Orders Name Type Priority Associated Diagnoses Orde r Schedule CBC auto differential Lab Routine Type 2 diabetes mellitus with other specified complication, unspecified whether exterminator insulin use (HCC) Expected: 04/20/2025 (Approximate), Expires: 04/20/2026 Comprehensive Metabolic Panel Lab Routine Type 2 diabetes mellitus with other specified complication, unspecified whether exterminator insulin use (HCC) Expected: 04/20/2025 (Approximate), Expires: 04/20/2026 Lipid Panel, Standard Lab Routine Type 2 diabetes mellitus with other specified complication, unspecified whether exterminator insulin use (HCC) Expected: 04/20/2025 (Approximate), Expires: 04/20/2026 Albumin, Random Urine W/Creatinine Lab Routine Type 2 diabetes mellitus with other specified complication, unspecified whether exterminator insulin use (HCC) Expected: 04/20/2025 (Approximate), Expires: 04/20/2026 documented as of this encounter Goals Goal Patient Goal Type Associated Problems Recent Progress Patient-Stated? Author Help patients manage their type 2 diabetes Care Plan Help patients manage their type 2 diabetes Mallory Saba MD Weekly blood pressure task Care Plan Weekly blood pressure task Mallory Saba MD Help patients manage their type 2 diabetes Care Plan Help patients manage their type 2 diabetes Mallory Saba MD Patient has chronic kidney disease Care Plan Patient has chronic kidney disease Mallory Saba MD Weekly blood pressure task Care Plan Weekly blood pressure task Mallory Saba MD Patient has chronic kidney disease Care Plan Patient has chronic kidney disease No Mallory Ornelas MD documented as of this encounter Procedures Procedure Name Priority Date/Time Associated Diagnosis Comments POCT GLYCATED HEMOGLOBIN, TOTAL Routine 04/20/2025 4:16 PM EST Type 2 diabetes mellitus with other specified complication, unspecified whether exterminator insulin use (HCC) POCT GLUCOSE (CPT-69100) Routine 04/20/2025 4:15 PM EST Type 2 diabetes mellitus with other specified complication, unspecified whether [facility]p insulin use (HCC) documented in this encounter Results * (ABNORMAL) POCT Hgb A1c (04/20/2025 4:16 PM EST) Hemoglobin A1C 6.9(A) 4.0 - 5.7 % QC Media Lot # [id number] Lot# Expiration Date 522,027 Blood 04/20/2025 4:16 PM EST Mallory Ornelas MD POINT OF CARE TEST ENTER/EDIT ORDERABLES Final Result * POCT Glucose (04/20/2025 4:15 PM EST) Glucose Blood, POC 109 60 - 200 mg/dL QC Media Lot # [id number] Lot# Expiration Date 472,[id number] Blood Capillary blood specimen / Unknown 04/20/2025 4:15 PM EST Mallory Ornelas MD POINT OF CARE TEST ENTER/EDIT ORDERABLES Final Result documented in this encounter Visit Diagnoses Diagnosis Type 2 diabetes mellitus with other specified complication, unspecified whether mcfp insulin use (HCC)- Primary Encounter for immunization documented in this encounter Additional Health Concerns Active Problems Noted Date Diagnosed Date Help patients manage their type 2 diabetes 04/20 Weekly blood pressure task 04/20/2025 Help patients manage their type 2 diabetes 04/20 Patient has chronic kidney disease 04/20/2025 Weekly blood pressure task 04/20/2025 Patient has chronic kidney disease 04/20/2025 Assessment Noted Time PHQ-9 Depression Total Score: 0 12/05/19 25 1:22 PM EDT documented as of this encounter Care Teams Sewer Separation Designer Relationship Specialty Start Date End Date Mallory Ornelas MD [address] [place] [address] PCP - General Family Medicine 06/23/21 documented as of this encounter
--- OUTSIDE RECORDS SUMMARY | 2025-04-22 08:42 | XMS_ITS | Encounter Summary ---
Author Organization [employer] Address [address] [place] [address] Care Team Providers Care Under Sheriff Name Role Phone Mallory Ornelas MD Primary Care Provider [phone] Encounter Details Date Type Department Care Team ([facility] st Contact Info) Description 04/11/2022 Orders Only [facility] [address] [place] [address] Sariah Piper LPN Social History Tobacco Use Types Packs/Day Years Used Date Smoking Tobacco: Never Assessed Sex and Gender Information Value Date Recorded Sex Assigned at Male 02/20/2022 10:39 AM EDT Legal Sex Male 10:39 AM EDT Gender Identity Male 02/20/2022 10:39 AM EDT Sexual Orientation Straight 02/20/2022 10 :39 AM EDT documented as of this encounter Plan of Treatment Not on file documented as of this encounter Visit Diagnoses Not on filedocumented in this encounter Care Teams Under Sheriff Relationship Specialty Start Date End Date Mallory Ornelas MD [address] [place] [id number] PCP - General Family Medicine 06/23/21 documented as of this encounter
--- OUTSIDE RECORDS SUMMARY | 2025-04-22 08:42 | XMS_ITS | Encounter Summary ---
Author Organization [employer] Address [address] [place] [address] Care Team Providers Care Boat Hop Name Role Phone Mallory Ornelas MD Primary Care Provider [phone] Encounter Details Date Type Department Care Team (Latest Contact Info) Description 04/20/2025 Travel Social History Tobacco Use Types Packs/Day Years [...] on file documented as of this encounter Goals Goal Patient Goal Type Associated Problems Recent Progress Patient-Stated? Author Help patients manage their type 2 diabetes Care Plan Help patients manage their type 2 diabetes No Mallory Ornelas MD Weekly blood pressure task Care Plan Weekly blood pressure task No Mallory Ornelas MD Help patients manage their type 2 diabetes Care Plan Help patients manage their type 2 diabetes No Mallory Ornelas MD Patient has chronic kidney disease Care Plan Patient has chronic kidney disease No Mallory Ornelas MD Weekly blood pressure task Care Plan Weekly blood pressure task No Mallory Ornelas MD Patient has chronic kidney disease Care Plan Patient has chronic kidney disease No Mallory Ornelas MD documented as of this encounter Visit Diagnoses Not on filedocumented in this encounter Additional Health Concerns Active [...] documented as of this encounter Care Teams Boat Hop Relationship Specialty Start Date End Date Mallory Ornelas MD [address] [place] [id number] PCP - General Family Medicine 06/23/21 documented as of this encounter
--- OUTSIDE RECORDS SUMMARY | 2025-04-22 08:42 | XMS_ITS | Clinical Summary ---
Author Organization [employer] Address [address] [facility] 7[address] [place] [address] Care Team Providers Care Small Business Representative Name Role Phone Mallory Ornelas MD Primary Care Provider [phone] Allergies Active Allergy Reactions Criticality Noted Date Comments Cephalexin Unknown Low 05/18/2021 Dont know Diphth-Acell Pertussis-Tetanus 07/18/2006 no t-dap pt has seizure disorder.per vis sheet.td ok Medications Aspirin Low Dose 81 MG EC tablet TAKE ONE TABLET EVERY DAY 022 Active Blood Glucose Monitoring Suppl (FreeStyle [place] Lite) w/Device kit TEST BLOOD SUGAR DIRECTED DAILY 022 Active carBAMazepine ER (Carbatrol) 300 MG 12 hr capsule TAKE ONE CAPSULE BY MOUTH AT BEDTIME 022 Active Farxiga 10 MG TAKE ONE TABLET BY MOUTH EVERY DAY 022 Active cholecalciferol (Vitamin D-3) 125 MCG (5000 UT) tablet Take 5,000 Units by mouth Once daily. Active B Complex-C (SUPER B COMPLEX PO) 1/2 tab by mouth in the moring and 1/2 tab at noon dialy Active TRUEplus Lancets 33G miscIndications: Type 2 diabetes mellitus without complications (HCC) TEST BLOOD SUGAR DAILY DIRECTED 100 each 11 023 Active Misc. Devices (Pulse Oximeter Deluxe) miscIndications: COVID-19 1 Units 4 times daily. 1 each 023 Active [place] Islander Cod Liver Oil oil 023 Active glucose blood (FREESTYLE LITE) test stripIndications :Type 2 diabetes mellitus with hyperglycemia, unspecified whether residential insulin use (HCC) TEST BLOOD SUGAR ONCE DAILY DIRECTED 200 strip 11 Active rosuvastatin (Crestor) 40 MG tabletIndication s:Hyperlipidemia , unspecified hyperlipidemia type Take 1 tablet (40 mg) by mouth in the morning. 90 tablet 1 Active atorvastatin (Lipitor) 80 MG tablet Take 80 mg by mouth Once per day. Active Lokelma 5 g packet MIX ONE PACKET DIRECTED AND DRINK THREE TIMES PER WEEK ON SUNDAY, SUNDAY AND SUNDAY MORNING Active lisinopril 2.5 MG tabletIndication s:Primary hypertension TAKE ONE TABLET BY MOUTH EVERY MORNING 90 tablet 1 04/01/20 25 9:58 AM EST Active fenofibrate (Triglide) 160 MG tabletIndication s:Hyperlipidemia , unspecified hyperlipidemia type TAKE ONE TABLET EVERY MORNING 90 tablet 1 04/01/20 25 9:58 AM EST Active Trulicity 1.5 MG/0.5ML solution auto-injectorInd ications:Type 2 diabetes mellitus with hyperglycemia, unspecified whether watermelon inspector insulin use (HCC) INJECT ONE PEN (=1.5MG) SUBCUTANEOUSLY ONCE A WEEK DIRECTED 2 mL 5 03/31/20 10:13 AM EST Active carBAMazepine (TEGretol) 200 MG tablet Take 200 mg by mouth in the morning. Active fluticasone (Flonase) 50 MCG/ACT nasal spray Administer 1 spray into each nostril Once per day. Shake gently. Before first use, prime pump. After use, clean tip and replace cap. 16 g 04/21/20 25 1:45 PM EST 2025 Active cetirizine (ZyrTEC) 10 MG tablet Take 1 tablet (10 mg) by mouth Once per day. 90 tablet 04/21/20 1:45 PM EST Active carBAMazepine ER (Carbatrol) 200 MG 12 hr capsule TAKE ONE CAPSULE BY MOUTH DAILY 2024 Discontinued cetirizine (ZyrTEC) 10 MG tablet TAKE ONE TABLET DAILY NEEDED 2024 Discontinued(R eorder (will not trigger notification to Pharmacy)) fluticasone (Flonase) 50 MCG/ACT nasal spray INHALE ONE SPRAY IN EACH NOSTRIL TWICE DAILY 022 2024 Discontinued(T herapy completed) Active Problems Problem Noted Date Diagnosed Date Lumbar stenosis with neurogenic claudication 06/2022 Assessment & Plan (04/25/2022 2:58 PM EST): Sp surgery, reports doing well post operatively, looking forward to advance in his movement. Doing home PT and recommended exercises, walking with the assistance of a cane to help balancing. History of spinal fusion 04/06/2022 Diabetes mellitus 06/20/2021 Assessment & Plan (02/01/2024 4:21 PM EDT): A1C: 5.8 POCT Glucose: 76 Pts condition is controlled. Continue Trulicity as prescribed. Discontinued Metformin. Assessment & Plan (06/01/2023 4:14 PM EST): Patient will continue to monitor his blood glucose levels. I adjusted Trulicity dosage if consistent reading in the 70s and 80s are observed. I will see patient for a F/U in 6 months to review labs, diabetic management and effectiveness of current treatments. Labs: CBC, Albumin, Lipid panel, Glucose, A1C, TSH w/ reflex to FT4 Assessment & Plan (03/13/2023 2:36 PM EST): Controlled: A1C levels are within normal limits. Will not make any changes at this time. Recommended to keep monitoring at home. Assessment & Plan (06/05/2022 9:52 AM EST): Controlled. POC 5.9%. Will cont current regimen. F/u 6 months. BP controlled. - microfilament normal, will send to podiatry given his back pain/surgery unable to bend for appropriate foot care. Referral placed - ammonium lactate rx'ed - will send clotrimazole 1% crm for tinea pedis interdigit Assessment & Plan (04/25/2022 2:59 PM EST): POC glucose within range sp postprandial, will send labs. Target a1c < 7%. Of note, patient will make appt with cash control specialist. Seizure ([facility]) 06/20/2021 Stage 3a chronic kidney disease ([facility]) 2021 Gout due to renal impairment 11/03/2017 EVANGELINA (obstructive sleep apnea) 04/05/2015 Overview (04/20/2025): On CPAP provided by [facility] home infusion 06/2018 Home Sleep Study did not reveal sleep apnea. ? 15# Weight loss resolved episodes. On CPAP provided by [facility] home infusion 06/2018 Home Sleep Study did not reveal sleep apnea. ? 15# Weight loss resolved episodes. 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 BCC (basal cell carcinoma) 04/01/2007 Overview (04/20/2025): BCC 02/27 Right cheek (nodular/ulcerated) BCC 02/27 Right cheek (nodular/ulcerated) Hyperlipidemia 04/27/2006 Essential hypertension, benign 04/10/2006 Assessment & Plan (03/13/2023 2:36 PM EST): Controlled: blood pressure is under control and within normal limits. Will not make any changes at this time. Recommended to keep monitoring at home. Resolved Problems Problem Noted Date Diagnosed Date Resolved Date Insomnia 04/25/2022 01/31/2024 Assessment & Plan (04/25/2022 2:57 PM EST): In the setting of nocturia and discomfort, reports slept well last night. Will need to monitor and assess if symptoms continues. Encounters Date Type Department Care Team Description 04/20/2025 4:00 PM EST Office Visit [facility] [address] [place] [address] Mallory Ornelas MD Type 2 diabetes mellitus with other specified complication, unspecified whether watermelon inspector insulin use (HCC) (Primary Dx); Encounter for immunization 04/20/2025 Travel 04/14/2025 Telephone [facility] [address] [place] [address] Mallory Ornelas MD chart prep 04/09/2025 Patient Outreach [facility] [address] [place] [address] Mallory Ornelas MD Pre-visit Planning (SDOH was completed ) 01/30/2025 Refill [facility] [address] [place] [address] Cassy Moore MD Type 2 diabetes mellitus with hyperglycemia, unspecified whether watermelon inspector insulin use (HCC) from Last 3 Months Immunizations Immunization Administration Dates Next Due Hep A, Adult 07/05/2024 Hep B, adult 03/13/2023,06/05/2022,05/01/2022 Influenza High-dose Quadriva lent Preservative Free 01/27/2022 Influenza Injectable Quadriv alant Preservative Free IIV4 MDCK 03/21/2018 Influenza Quadrivalent Adjuvanted 02/21/2023, Influenza injectable quadriv alent preservative free 12/04/2016 Influenza, High Dose Seasona l, Preservative Free 01/21/2024,03/14/2021,02/01/2021,02/19 Influenza, IIV3, injectable 01/07/2016,1 06/06/2014,04/03/2014,02/12,03/05/2012,03/27/2011,12/31/2009 ,02/05/2007 Influenza, Unspecified 01/27/2022,2019,12/04/2016,01/06,04/05/2015,04/03/2014,02/12/2013 ,03/05/2012,03/27/2011,12/31/2009,01/21 Influenza, trivalent, adjuvanted 01/29/2025 PPD Test 03/08/2001,03/06/2001 Pfizer Covid-19 Vaccine 12+ 04/20/2025, Pfizer Covid-19 Vaccine 12+ jamil-sucrose ([place] Cap) 10/08/2021 Pneumococcal Conjugate PCV 20 10/03/2021 Pneumococcal Polysaccharide PPSV23 07/28/2018, RSV Bivalent 06/01/2023 TD (adult), 2 Lf tetanus tox oid, preservative free, adsorbed 07/18/2006,07/19/2003 Tdap 07/05/2024,05/21/2017 Typhoid, ViCPs 06/26/2024 Zoster, Recombinant 10/03/2021,08/01/2021 Zoster, live 10/03/2021,08/01/2021 Social History Tobacco Use Types Packs/Day Years Used Date Smoking Tobacco: Former Cigarettes Passive Smoke Exposure: Never Smokeless Tobacco: Never Tobacco Cessation:Counseling Given: Not Answered Alcohol Use [...] Orientation Straight 02/20/2022 10 :39 AM EDT Last Filed Vital Signs Vital [...] Mass Index 27.49 04/20/2025 4:00 PM EST Plan of Treatment Health Maintenance Due Date Last Done Comments CT Colonography 1953 FIT DNA/Cologuard 1953 FIT 1953 FOBT 1955 Sigmoidoscopy 1953 Derm Melanoma Skin Check 02/08/1954 Eye Exam 08/10/1963 Alcohol/Substance Use Screening 1965 COVID-19 Vaccine ( season) 2025 04/20/2025, 07/21/2024, 02/05/2024, Additional history exists Diabetes: Hemoglobin A1C 10/19/2025 025, 12/04/2024, 01/31/2024, Additional history exists SDOH Screening 11/25/2025 11/25/2024 Depression Screening 12/04/2025 12/04/2024, 12/05/19 25 Lipid Panel 12/05/2025 12/05/2024, 05/24, 04/27/2022, Additional history exists Colonoscopy 02/24/2026 02/24/2021, 02/24/2021 Colorectal Cancer Screening 02/24/2026 Diabetes: Foot Exam 04/20/2026 04/20/2025, 04/20/2025, 04/20/2025, Additional history exists Tobacco Screening 04/20/2026 04/20/2025 DTaP/Tdap/Td Vaccines (3 - Td or Tdap) 07/05/2034 07/05/2024, 05/21/2017, 07/18/2006, Additional history exists Pneumococcal Vaccine: 50+ Years Completed 10/03/2021, 07/28/2018, 10/15/2013 Zoster Vaccines Completed 10/03/2021, 09/21, 08/01/2021, Additional history exists Hepatitis C Screening Completed 04/27/2022 Hepatitis B Vaccines Completed 03/13/2023, 06/05/2022, 05/01/2022 RSV Patients and Patients Aged 60 years or older Completed 06/01/2023 Hepatitis A Vaccines Aged Out 07/05/2024 No long er eligible based on patient's age to complete this topic Influenza Vaccine Completed 01/29/2025, , 02/21/2023, Additional history exists HIB Vaccines Aged Out No longer eligi [...] patient's age to complete this topic Meningococcal Vaccine Aged Out No caridad carleen eligible based on patient's age to complete this topic RSV under 20 months Aged Out No longe r eligible based on patient's age to complete this topic Rotavirus Vaccines Aged Out No longer eligible based on patient's age to complete this topic Goals Goal Patient Goal Type Associated Problems [...] chronic kidney disease No Mallory Ornelas MD Procedures Procedure Name Priority Date/Time Associated Diagnosis Comments POCT GLYCATED HEMOGLOBIN, TOTAL Routine 04/20/2025 4:16 PM EST Type 2 diabetes mellitus with other specified complication, unspecified whether residential insulin use (HCC) POCT GLUCOSE (CPT-87879) Routine 04/20/2025 4:15 PM EST Type 2 diabetes mellitus with other specified complication, unspecified whether residential insulin use (HCC) LIPID PANEL, STANDARD Routine 12/05/2024 8:56 AM EDT Type 2 diabetes mellitus with other specified complication, unspecified whether watermelon inspector insulin use (CMS/HCC) Routine general medical examination at a health care facility HP LINK DIABETIC FOOT EXAM Routine 11/30/2022 HEPATITIS C AB W/REFL TO HCV RNA, QN, PCR Routine 04/27/2022 10:03 AM EST Type 2 diabetes mellitus with hyperglycemia, without long-term current use of insulin (CMS/HCC) COLONOSCOPY Routine 02/24/2021 from Last 3 Months or Most Recently Relevant to Health Maintenance Results * (ABNORMAL) POCT Hgb A1c (04/20/2025 4:16 PM EST) Hemoglobin A1C 6.9(A) 4.0 - 5.7 % QC Media Lot # [id number] Lot# Expiration Date 522, Blood 04/20/2025 4:16 PM EST Mallory Ornelas MD POINT OF CARE TEST ENTER/EDIT ORDERABLES Final Result * POCT Glucose (04/20/2025 4:15 PM EST) Pathologist [facility] Glucose Blood, POC 109 60 - 200 mg/dL QC Media Lot # [id number] Lot# Expiration Date [id number] Blood Capillary blood specimen / Unknown 04/20/2025 4:15 PM EST Mallory Ornelas MD POINT OF CARE TEST ENTER/EDIT ORDERABLES Final Result * (ABNORMAL) Lipid Panel, Standard (12/05/2024 8:56 AM EDT) Triglycerides 193(H) <150 mg/dL [facility] Comment:Desirable Triglyceri de: less than 150 mg/dLBorderline High Triglyceride 150-199 mg/dLHigh Triglyceride: 200-499 mg/dLVery High Triglyceride: greater than or equal to 5OO mg/dL Cholesterol 158 <200 mg/dL [facility] Comment:Desirable Cholestero l: less than 200 mg/dLBorderline High Cholesterol: 200-239 mg/dLHigh Cholesterol: greater than 239 mg/dL LDL Cholesterol Calculated 77 <100 mg/dL [facility] Comment:Desirable LDL: less than 100 mg/dLNear Optimal/Above Optimal LDL: 110- 129 mg/dLBorderline High LDL: 130-159 mg/dLHigh LDL: 160-189 mg/dLVery High LDL: greater than or equal to 190 mg/dL HDL Cholesterol 43 >40 mg/dL [facility] Comment:Desirable HDL: great er than 40 mg/dL Note: This HDL assay may give artificially low results in patients with liver disease. Blood Venous blood specimen / Unknown 12/05/2024 8:56 AM EDT 12/05/2024 2:09 PM EDT Keiry Joshua MD LAB BLOOD ORDERABLES Final Re sult [facility] [address] [place] [address] [phone] * (ABNORMAL) HP Diabetic Foot Exam (11/30/2022) Narrative Mallory Ornelas MD - 11/30/2022 Diabetic Foot Exam Inspection: Ulcers: not observed Calluses: present hallux and heel Edema: not observed Onychomycosis: not observed Tinea pedis: not observed Charcot foot or other deformities: not observed Erythema: not Observed Decrease hair in heel/foot, dry skin Monofilament Foot Exam: Right Foot : Great toe Normal 1st MT Normal 3rd MT Normal 5th MT Normal Heel Normal . Left Foot Great toe Normal 1st MT Normal 3rd MT Normal 5th MT Normal Heel Normal Vibration: Right foot: Abnormal Left foot: Abnormal Pedal Pulses: -Right dorsalis pedis: decreased -Right posterior tibialis: +2 -Left dorsalis pedis: +2 -Left posterior tibialis: decreased Mallory Ornelas MD HEALTH MAINTENANCE Final Resu lt * Hepatitis C Antibody with Reflex to HCV, RNA, Quantitative, Real-Time PCR (04/27/2022 10:03 AM EST) Hepatitis C Antibody NON-REACT POLO NON-REACT POLO [facility] [place] [facility] Index 0.06 <1.00 [facility] Comment: HCV antibody was non-reactive. There is no laboratory evidence of HCV infection. In most cases, no further action is required. However, if recent HCV exposure is suspected, a test for HCV RNA (test code 27701) is suggested. For additional information please refer to http://education.NSC/faq/PVW30s5 (This link is being provided for informational/ educational purposes only.) Blood Venous blood specimen / Unknown 04/27/2022 10:03 AM EST 04/27/2022 10:03 AM EST Mallory Ornelas MD LAB BLOOD ORDERABLES Final Re sult [facility] [address] [facility] [address] [place] [address] [facility] [address] [facility] [address], ([address]) [place] [address] * Hm Colonoscopy (02/24/2021) Colonoscopy Normal Normal Narrative Randee Morales - 02/24/2021 Recommended 5 year follow up Historical Provider MD HEALTH MAINTENANCE Final Result from Last 3 Months or Most Recently Relevant to Health Maintenance Additional Health Concerns Active Problems Noted Date Diagnosed Date Help patients manage their type 2 diabetes 04/20 Weekly blood pressure task 04/20/2025 Help patients manage their type 2 diabetes 04/20 Patient has chronic kidney disease 04/20/2025 Weekly blood pressure task 04/20/2025 Patient has chronic kidney disease 04/20/[id number] [place] [id number] [facility] MEDEX MEDICARE SUPPLEMENT Care Teams Small Business Representative Relationship Specialty Start Date End Date Mallory Ornelas MD [address] [place] [id number] PCP - General Family Medicine 06/23/21
--- OUTSIDE RECORDS SUMMARY | 2025-04-22 08:42 | XMS_ITS | Clinical Summary ---
Author Organization [facility] Address [address] [place] [address] [address] [place] [address] Phone Care Team Providers Care Reactor Kettle Operator Name Role Phone Mallory Ornelas MD Primary Care Provider [phone] Allergies Active Allergy Reactions Criticality Noted Date [...] Mass Index - - Plan of Treatment Upcoming Encounters Date Type Department Care Team (Late st Contact Info) Description 04/25/2025 Orders Only [facility] [address] [place] [address] Octavio Mcgowan MD [address] [facility] [address] [place] [address] Stage 3 chronic kidney disease, not otherwise specified (HCC) Health Maintenance Due Date Last Done Comments Colorectal Cancer Screening: Annual FOBT 2002 Colorectal Cancer Screening: Colonoscopy 2002 Colorectal Cancer Screening: Sigmoidoscopy 2002 Diabetes: Ophthalmology Exam 06/15/2021 Diabetes: Pedal Pulse Checked 06/15/2021 Diabetes: Sensory Foot Exam 06/15/2021 Diabetes: Visual Foot Exam 06/15/2021 Influenza Vaccine (#1) 2024 4, 02/21/2023, 01/27/2022, Additional history exists Diabetes: Hemoglobin A1C 03/06/202512/04/2 025, 01/31/2024, 05/23/2021, Additional history exists Pneumococcal Vaccine: 50+ Years [...] 9.5 8.7 - 10.7 mg/dL eGFR Non-Afr [place] Citizen 46 Hemoglobin A1C 9.7(A) 4.0 - 6.0 Triglycerides 346(A) 40 - 160 05/23/2021 [facility] Provider LAB BLOOD ORDERABLES Estefani l Result from Last 3 Months or Most Recently Relevant to Health Maintenance Insurance Medicare [facility] Medicare [facility] Care Teams Reactor Kettle Operator Relationship Specialty Start Date End Date Mallory Ornelas MD PCP - General Family Medicine 06/20/21
--- OUTSIDE RECORDS SUMMARY | 2025-04-22 08:42 | XMS_ITS | Encounter Summary ---
Author Organization [email or web address] Address [address] [place] [address] Care Team Providers Care City Routeman Name Role Phone Mallory Ornelas MD Primary Care Provider [phone] Reason for Visit * Reason Comments Med Refill Encounter Details Date Type Department Care Team ([facility] [address] Contact Info) Description 06/27/2022 Refill [facility] [address] [place] [address] Mallory Ornelas MD [address] [place] [address] Social History Tobacco Use Types Packs/Day Years Used Date Smoking Tobacco: Former Cigarettes Passive Smoke Exposure: Never Smokeless Tobacco: Never Alcohol Use Standard Drinks/Week Comments Never 0 (1 standard drink = 0.6 oz pur e alcohol) Depression Answer Date Recorded Patient Health Questionnaire-9 Score 0 06/05/2022 Depression Answer Date Recorded Patient Health Questionnaire-2 Score 0 06/05/2022 Sex and Gender Information Value Date Recorded [...] suspected to have Coronavirus/COVID-19? No / Unsure 06/05/2022 9:12 AM EST documented as of this encounter Plan of Treatment Not on file documented as of this encounter Visit Diagnoses Not on filedocumented in this encounter Additional Health Concerns Assessment Noted Time PHQ-9 Depression Total Score: 0 06/05/19 23 9:33 AM EST documented as of this encounter Care Teams City Routeman Relationship Specialty Start Date End Date Mallory Ornelas MD [address] [place] [address] PCP - General Family Medicine 06/23/21 documented as of this encounter
--- OUTSIDE RECORDS SUMMARY | 2025-04-22 08:42 | XMS_ITS | Encounter Summary ---
Author Organization [employer] Address [address] [facility] [address] [place] [address] Care Team Providers Care Vp Of Marketing Name Role Phone Mallory Ornelas MD Primary Care Provider [phone] Encounter Details Date Type Department Care Team ([facility] st Contact Info) Description 04/06/2022 Orders Only [facility] [address] [place] [address] Mallory Ornelas MD [address] [place], [place] [id number] Social History Tobacco Use Types Packs/Day Years [...] on filedocumented in this encounter Care Teams Vp Of Marketing Relationship Specialty Start Date End Date Mallory Ornelas MD [address] [place] [address] PCP - General Family Medicine 06/23/21 documented as of this encounter
--- OUTSIDE RECORDS SUMMARY | 2025-04-22 08:42 | XMS_ITS | Encounter Summary ---
Author Organization [employer] Address [address] [facility] 7[address] [place] [address] Care Team Providers Care Evaporator Operator Molasses Name Role Phone Mallory Ornelas MD Primary Care Provider [phone] Encounter Details Date Type Department Care Team (Late st Contact Info) Description 05/31/2022 Abstract [facility] [address] [place] [address] Mallory Ornelas MD [address] [place], [place] [id number] Social History Tobacco Use Types Packs/Day Years [...] on filedocumented in this encounter Care Teams Evaporator Operator Molasses Relationship Specialty Start Date End Date Mallory Ornelas MD [address] [place] [address] PCP - General Family Medicine 06/23/21 documented as of this encounter
--- OUTSIDE RECORDS SUMMARY | 2025-04-22 08:42 | XMS_ITS | Encounter Summary ---
Author Organization [employer] Address [address] [facility] [address] [facility] [address] [place] [address] Care Team Providers Care Inspector Raw Quartz Name Role Phone Mallory Ornelas MD Primary Care Provider [phone] Encounter Details Date Type Department Care Team (Late st Contact Info) Description 04/28/2022 Orders Only [facility] [address] [place], [place] [phone] Mallory Ornelas MD [address] [place], [place] [phone] Transaminitis (Primary Dx) Social History Tobacco Use [...] EST) Glucose 107(H) 65 - 99 mg/dL [facility] Comment: Fasting reference interval For someone without known diabetes, a glucose value between 100 and 125 mg/dL is consistent with prediabetes and should be confirmed with a follow-up test. Urea Nitrogen (BUN) 49(H) 7 - 25 mg/dL [facility] Creatinine, Serum 1.35 0.70 - 1.35 mg/dL [facility] eGFR 57(L) > OR = 60 mL/min/1. 73m2 [facility] Comment: The eGFR is based on the CKD-EPI 2020 equation. To calculate the new eGFR from a previous Creatinine or Cystatin C result, go to https://www.kidney.org/professionals/ kdoqi/gfr%5Fcalculator BUN/Creatinine Ratio 36(H) 6 - 22 (calc) [facility] Sodium 136 135 - 146 mmol/L [facility] Potassium 4.8 3.5 - 5.3 mmol/L [facility] Chloride 100 98 - 110 mmol/L [facility] Carbon Dioxide 29 20 - 32 mmol/L [facility] Calcium 9.9 8.6 - 10.3 mg/dL [facility] Protein, Total 7.1 6.1 - 8.1 g/dL [facility] Albumin 4.8 3.6 - 5.1 g/dL [facility] Globulin 2.3 1.9 - 3.7 g/dL (calc) [facility] Albumin/Globuli n Ratio 2.1 1.0 - 2.5 (calc) [facility] Bilirubin, Total 0.5 0.2 - 1.2 mg/dL [facility] Alkaline Phosphatase 97 35 - 144 U/L [facility] AST 25 10 - 35 U/L [facility] ALT 29 9 - 46 U/L [facility] Blood Venous blood specimen / Unknown 05/09/2022 9:43 AM EST 05/09/2022 9:43 AM EST us Mallory Ornelas MD LAB BLOOD ORDERABLES Final Re sult [facility] [address] [place] [address] [employer] [facility] [address], ([address]) [place] [address] documented in this encounter Visit Diagnoses Diagnosis Transaminitis- Primary Nonspecific elevation of levels of transaminase or lactic acid dehydrogenase (LDH) documented in this encounter Care Teams Inspector Raw Quartz Relationship Specialty Start Date End Date Mallory Ornelas MD [address] [place] [address] PCP - General Family Medicine 06/23/21 documented as of this encounter
--- OUTSIDE RECORDS SUMMARY | 2025-04-22 08:43 | XMS_ITS | Patient Health Record ---
Author Organization [facility] Address [address] [facility] [place] [address] Care Team Providers Care Lapidarist Name Role Phone Mallory Ornelas Primary Care Provider Unavailab Melly Valencia Unavailable [phone] Allergies Allergen (clinical drug ingredient) Drug/Non Drug Allergy documented on EMR Reaction Allergy Type Onset Date Status cephalexin Cephalexin Unknown Drug Allergy Activ e Results Component Value Reference Range Notes HEMOGLOBIN A1C (GLYCOHEMOGLO BIN) Reviewed date:01/25/2025 05:45:51 PM Interpretation: Performing Lab: Notes/Report: HEMOGLOBIN A1C % (HH) 6.9 Reason For Referral No Information Medications Medication SIG (Take, Route, Frequency, Duration) Notes Start Date End Date Status Fluticasone Furoate 27.5 MCG/SPRAY 2 sprays (1 spray in each nostril) Nasally Once a day Active Fenofibrate 160 MG 1 tablet Orally Once a day Active Farxiga 10 MG 1 tablet Orally Once a day Active Lisinopril 2.5 MG 1 tablet Orally Once a day Active Cetirizine HCl 10 MG 1 tablet Orally Onc e a day Active Carbamazepine (Antipsychotic) Active Aspirin 81 Active Ammonium Lactate 12 % 1 application Exte rnally Twice a day; Duration: 30 days Active Trulicity Active Extra Depth Orthopedic Shoes (1 Pair) with Customized Heat Molded Multidensity Innersoles (3 Pair) as directed Dx: NIDDM/Polyneuropathy (E11.42), Hammertoe Foot Deformity (M20.41,M20.42), Preulcerative Skin Lesion(s) (L85.1 04/07/2024 Active Super B Complex Acti ve metFORMIN HCl 500 MG 1 tablet with a alfredo l Orally Once a day Not-Taking Rosuvastatin Calcium 40 MG 1 tablet Orally Once a day Active Dulaglutide 1.5 MG/0.5ML as directed Subcutaneous Not-Taking Immunizations Vaccine Route Administration Date Status Comme nts Influenza Unknown 04/23/2023 Administered Social History Tobacco Use: Social History Observation Description Date Details (start date - stop date) Never Smoker NA - NA Tobacco use other than smoking: Question Answer Notes Are you an other tobacco user? No Tobacco Control (Standard) Question Answer Notes Tobacco use: Nonsmoker Additional Findings: Tobacco non-user Ex-cigaret te smoker AUDIT-C (Standard) Question Answer Notes Did you have a drink containing alcohol in the p ast year? No Points 0 Interpretation Negative Problems Problem Type SNOMED Code ICD Code Onset Dates Problem Status W/U Status Risk Notes Problem Polyneuropathy due to type 2 diabetes mellitus (426675571) Type 2 diabetes mellitus with diabetic polyneuropathy (E11.42) Active confirmed Vital Signs Blood pressure diastolic 80 mm Hg 01/26/2025 Height 5ft 5in in 01/26/2025 Blood pressure systolic 120 mm Hg 01/26/2025 Weight 158 lbs 01/26/2025 BMI 26.29 kg/m2 01/26/2025 Procedures Procedure Date Ordered Date Performed Result Body Sit e 25876-XHNF SKIN LESIONS, 2 TO 4 07/21/2024 N/A W0777-GATLORXI DYSTROPHIC NAILS ANY # 07/21/2024 N/A 60672-SGRZ SKIN LESIONS, 2 TO 4 10/27/2024 N/A E6191-WEFULZDH DYSTROPHIC NAILS ANY # 10/27/2024 N/A 08273-QXUC SKIN LESIONS, 2 TO 4 01/26/2025 N/A Y5583-RZQLRGZK DYSTROPHIC NAILS ANY # 01/26/2025 N/A Encounters Encounter Location Date Provider Diagnosis [facility] [address] [address] 07/21/2024 Melly Black Type 2 diabetes mellitus with diabetic polyneuropathy E11.42 ; Other hammer toe(s) (acquired), right foot M20.41 and Other hammer toe(s) (acquired), left foot M20.42 [facility] [address] [place] [address] 10/27/2024 Melly Armenta Type 2 diabetes mellitus with diabetic polyneuropathy E11.42 [facility] [place] [address] [place] [address] 01/26/2025 Melly Armenta Type 2 diabetes mellitus with diabetic polyneuropathy E11.42 Assessments Encounter Date Diagnosis (ICD Code) Assessment Notes Treatment Notes Treatment Clinical Notes Section Notes 07/21/2024 Other hammer toe(s) (acquired), right foot (ICD-10 - M20.41) 07/21/2024 Type 2 diabetes mellitus with diabetic polyneuropathy (ICD-10 - E11.42) 10/27/2024 Type 2 diabetes mellitus with diabetic polyneuropathy (ICD-10 - E11.42) 01/26/2025 Type 2 diabetes mellitus with diabetic polyneuropathy (ICD-10 - E11.42) 07/21/2024 Other hammer toe(s) (acquired), left foot (ICD-10 - M20.42) Plan Of Treatment Pending Test Test Name Order Date 61252-ICQU SKIN LESIONS, 2 TO 4 06/21/19 24 76820-GMPW SKIN LESIONS, 2 TO 4 10/01/19 24 54834-FIJJ SKIN LESIONS, 2 TO 4 01/03/20 24 21801-VZAC SKIN LESIONS, 2 TO 4 07/22/19 25 88548-QOYT SKIN LESIONS, 2 TO 4 10/28/19 25 55696-FNYI SKIN LESIONS, 2 TO 4 01/27/20 25 W9460-YILAVMPN DYSTROPHIC NAILS ANY # O6475-VDFQINYR DYSTROPHIC NAILS ANY # I4715-OMZDAYXK DYSTROPHIC NAILS ANY # B9702-AWEJJGNS DYSTROPHIC NAILS ANY # F2867-MXAJFBDD DYSTROPHIC NAILS ANY # A9025-MVJMTKKM DYSTROPHIC NAILS ANY # Next Appt Details Provider Name:Melly Armenta , 05/21/2025 03:00:00 PM, [address] [place] [address], [id number], Insurance Providers Payer Name Payer Address Payer Phone Subscriber Number Group Number Insured Name Patient Relationship to Insured Coverage Start Date Coverage End Date Medicare National Govt Svcs Inc [address] [place] [address] [id number] Michele Amato Self - patient is the insured Payvment [address] [place] [address] [id number] Michele Amato Self - patient is the insured Medical (General) History Medical History History ICD Code 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
--- OUTSIDE RECORDS SUMMARY | 2025-04-22 08:43 | XMS_ITS | Clinical Summary ---
Author Organization [facility] Address [address] [place] [address] Care Team Providers Care Flake Cutter Operator Name Role Phone German Johnson MD Primary Care Provider [phone] Allergies Active Allergy Reactions Criticality Noted Date [...] Date Diagnosed Date Type 2 diabetes mellitus with diabetic nephropat hy 08/12/2018 Acute gout due to renal impairment involving rig ht foot 11/03/2017 Neuropathy 05/02/2016 EVANGELINA (obstructive sleep apnea) 04/05/2015 Overview (04/22/2024): On CPAP provided by [facility] home infusion 06/2018 Home Sleep Study did not reveal sleep apnea. ? 15# Weight loss resolved episodes. 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 Was using only one tab per day for years before that Immunizations Immunization Administration Dates Next Due Influenza Quadravalent, MDCK , 0.5ml, preservative free (Flucelvax) 6mo and older 03/21/2018 Influenza trivalent, 0.5mL ( Fluzone High-dose) 65yo and older 03/14/2021,02/01/2021,02/19/2019 Influenza trivalent, with pr eservative (Fluzone; Afluria) 6mo and older 01/07/2016,04/05/2015,04/03/2014,02/12,03/05/2012,03/27/2011,12/31/2009 ,02/05/2007 Influenza, Unspecified 12/18/2019,12/04/2016 PPD Test 03/08/2001,03/06/2001 Hively SARS-CoV-2 COVID-19, mRNA, LNP-S, preservative free 02/01/2021 Pneumococcal polysaccharide 23 valent (Pneumovax 23) 2yo and older 10/15/2013 Td Tetanus diptheria (Tdvax) 7yo and older 07/18/2006 Tdap Tetanus diptheria acell ular pertussis (Boostrix; Adacel) 7yo and older 05/21/2017 Surgical History Surgery Date Site/Laterality Comments NASAL SEPTUM SURGERY PROCEDURE: [place] REPAIR NASAL SEPTAL PERFORATIONS COLONOSCOPY 12/31/2006 PROCEDURE: [...] Years Used Date Smoking Tobacco: Former Cigarettes 0 Q uit: 04/23/1976 Smokeless Tobacco: Never Alcohol Use Standard Drinks/Week Comments Yes 0 (1 standard drink = 0.6 oz pur e alcohol) Sex and Gender Information Value Date Recorded Sex Assigned at Not on file Legal Sex Male 2:41 AM EST Gender Identity Not on file Sexual Orientation Not on file Last Filed Vital Signs Vital Sign Reading [...] RSV Immunization Adult Patients (1 - Risk 50-74 years 1-dose series) 08/10/2003 Pneumococcal Vaccine: 50+ Years (2 of 2 [...] to Health Maintenance Results * Colonoscopy (02/24/2021) Pathologist [facility] Colonoscopy No interpretation , Abstracted Anatomical Region Laterality Modality Other Historical Provider HEALTH MAINTENANCE Final Result * Urine Albumin Creatinine Ratio (12/13/2020) Pathologist [facility] Urine Albumin Creatinine Ratio Abstracted Historical Provider HEALTH MAINTENANCE Final Result * Annual BMP Blood Test (12/13/2020) Pathologist [facility] Annual BMP Blood Test Abstracted Result [facility] Provider HEALTH MAINTENANCE Final Result * (ABNORMAL) Hemoglobin A1c (12/13/2020) [facility] Hemoglobin A1C 6.6(A) <=6.5 % Blood Venous blood specimen / Unknown Result [facility] Provider LAB BLOOD ORDERABLES Estefani l Result * (ABNORMAL) Lipid panel (08/31/2020) [facility] LDL/HDL Ratio 4 0 - 4 Triglycerides 331(A) 0 - 150 mg/dL Cholesterol 201(A) 0 - 200 mg/dL HDL 47 >=40 mg/dL LDL Cholesterol 88 0 - 100 mg/dL Blood Venous blood specimen / Unknown Result [facility] Provider LAB BLOOD ORDERABLES Estefani l Result * Hepatitis C Screening (06/11/2013) [facility] Hepatitis C Screening Abstracted Result [facility] Provider HEALTH MAINTENANCE Final Result from Last 3 Months or Most Recently Relevant to Health Maintenance Care Teams Flake Cutter Operator Relationship Specialty Start Date End Date German Johnson MD [address] [place] [address] PCP - General Internal Medicine 04/15/20
--- OUTSIDE RECORDS SUMMARY | 2025-04-22 08:43 | XMS_ITS | Encounter Summary ---
Author Organization [employer] Address [address] [facility] [address] [facility] [address] [address] [place] [address] Care Team Providers Care Manager Hair Name Role Phone Mallory Ornelas MD Primary Care Provider [phone] Reason for Visit * Reason Onset Date Comments Med Refill 09/12/2023 Encounter Details Date Type Department Care Team ([facility] st Contact Info) Description 09/12/2023 Refill [facility]S [address] [place] [address] Malloyr Ornelas MD [address] [place] [address] Type 2 diabetes mellitus with hyperglycemia, unspecified whether residential insulin use ([facility]) Social History Tobacco Use Types Packs/Day Years Used Date Smoking Tobacco: Former Cigarettes Passive Smoke Exposure: Never Smokeless Tobacco: Never Alcohol Use Standard Drinks/Week Comments Never 0 (1 standard drink = 0.6 oz pur e alcohol) Depression Answer Date Recorded Patient Health Questionnaire-9 Score 0 06/05/2022 Housing Stability Answer Date Recorded What is your housing situation today? I have brendanmarianne novak 02/07/[address] you li ve. Do you have problems with any of the following? None of the above 02/07/2023 Food Insecurity Answer Date Recorded Within the past 12 months, y ou worried that your food would run out before you got money to buy more: Never True 02/07/2023 Within the past 12 months,th e food you bought just didn't last and you didn't have enough money to get more: Never True Transportation Answer Date Recorded In the past 12 months, has l ack of transportation kept you from medical appts, meetings, work or from getting things needed for daily living? No 02/07/2023 Utilities Answer Date Recorded In the past 12 months, has t he electric, gas, oil or water company threatened to shut off services in your home? No 02/07/2023 Depression Answer Date Recorded Patient Health Questionnaire-2 [...] documented as of this encounter Visit Diagnoses Diagnosis Type 2 diabetes mellitus with hyperglycemia, unspecified whether residential insulin use (HCC) documented in this encounter Additional Health Concerns Assessment Noted Time PHQ-9 Depression Total Score: 0 06/05/19 23 9:33 AM EST documented as of this encounter Care Teams Manager Hair Relationship Specialty Start Date End Date Mallory Ornelas MD [address] [place] [address] PCP - General Family Medicine 06/23/21 documented as of this encounter
--- OUTSIDE RECORDS SUMMARY | 2025-04-22 08:43 | XMS_ITS | Encounter Summary ---
Author Organization [employer] Address [address] [place] [address] Care Team Providers Care Loan Funder Name Role Phone Mallory Ornelas MD Primary Care Provider [phone] Encounter Details Date Type Department Care Team (Late st Contact Info) Description 03/08/2023 Abstract [facility] MEDICINE [address] [place] [address] Mallory Ornelas MD [address] [place], [place] [phone] Social History Tobacco Use Types Packs/Day Years [...] Date/Time Associated Diagnosis Comments COLONOSCOPY Routine 02/24/2021 documented in this encounter Results * Colonoscopy (02/24/2021) Colonoscopy Normal Normal Narrative Randee Morales - 02/24/2021 Recommended 5 year follow up Historical Provider HEALTH MAINTENANCE Final Result documented in this encounter Visit Diagnoses Not on filedocumented in this encounter Additional Health Concerns Assessment Noted Time PHQ-9 Depression Total Score: 0 06/05/19 23 9:33 AM EST documented as of this encounter Care Teams Loan Funder Relationship Specialty Start Date End Date Mallory Ornelas MD [address] [place] [address] PCP - General Family Medicine 06/23/21 documented as of this encounter
--- OUTSIDE RECORDS SUMMARY | 2025-04-22 08:43 | XMS_ITS | Encounter Summary ---
Author Organization [employer] Address [address] [facility] [address] [place] [address] Care Team Providers Care Clothing Examiner Name Role Phone Mallory Ornelas MD Primary Care Provider [phone] Reason for Visit * Reason Comments Med Refill Encounter Details Date Type Department Care Team ([facility] st Contact Info) Description 12/27/2022 Refill [facility] MED & PEDS [address] [place] [address] Keiry Joshua MD [address] [place] [address] Hyperlipidemia, unspecified hyperlipidemia type Social History Tobacco Use Types Packs/Day Years [...] as of this encounter Visit Diagnoses Diagnosis Hyperlipidemia, unspecified hyperlipidemia type documented in this encounter Additional Health Concerns Assessment Noted Time PHQ-9 Depression Total Score: 0 06/05/19 23 9:33 AM EST documented as of this encounter Care Teams Clothing Examiner Relationship Specialty Start Date End Date Mallory Ornelas MD [address] [place] [id number] PCP - General Family Medicine 06/23/21 documented as of this encounter
--- OUTSIDE RECORDS SUMMARY | 2025-04-22 08:43 | XMS_ITS | Encounter Summary ---
Author Organization [employer] Address [address] [place] [address] Care Team Providers Care Stoker Erector Name Role Phone Mallory Ornelas MD Primary Care Provider [phone] Reason for Visit * Reason Onset Date Comments Med Refill 03/01/2023 Encounter Details Date Type Department Care Team ([facility] st Contact Info) Description 03/01/2023 Refill [facility] MED & PEDS [address] [place] [address] Mallory Ornelas MD [address] [place] [address] Type 2 diabetes mellitus with hyperglycemia, unspecified whether senior living insulin use ([facility]) Social History Tobacco Use Types [...] 2 diabetes mellitus with hyperglycemia, unspecified whether senior living insulin use (HCC) documented in this encounter Additional Health Concerns Assessment Noted Time PHQ-9 Depression Total Score: 0 06/05/19 23 9:33 AM EST documented as of this encounter Care Teams Stoker Erector Relationship Specialty Start Date End Date Mallory Ornelas MD [address] [place] [id number] PCP - General Family Medicine 06/23/21 documented as of this encounter
--- OUTSIDE RECORDS SUMMARY | 2025-04-22 08:43 | XMS_ITS | Clinical Summary ---
Author Organization [facility] [facility] Prior to 09/20/[address] [place] [address] Care Team Providers Care Atomic Physics Professor Name Role Phone German Johnson MD Primary Care Provider [phone] Social History Tobacco Use Types Packs/Day Years [...] age to complete this topic Care Teams Atomic Physics Professor Relationship Specialty Start Date End Date German Johnson MD PCP - General Internal Medicine 04/15/20
[2025-04-22 16:20] LABS: MANUAL DIFF FLAG NO
[2025-04-22 16:37] LABS: Hematocrit 45.1 % (42.0-52.0); Hemoglobin 14.5 g/dl (14.0-18.0); Imm Gran Abs Auto 0.02 X10*3/uL (0.00-0.03); Imm Gran Pct Auto 0.4 % (0.0-0.4); Lymphocytes Absolute Auto 1.6 X10*3/uL (1.2-4.9); Mean Corpuscular HGB Conc 32.2 g/dl (31.0-36.0); Mean Corpuscular Hemoglobin 31.2 pg (27.0-33.0); Mean Corpuscular Volume 97.0 fL (80.0-98.0); NRBC Abs Auto 0.000 X10*3/uL (0.0-0.012); NRBC Pct Auto 0.0 /100WBC (0.0-0.2); Platelet Count 248 X10*3/uL (160-400); Red Blood Count 4.65 X10*6/uL (4.60-5.80); White Blood Count 5.5 X10*3/uL (4.8-10.8)
[2025-04-22 17:36] LABS: Microalbum/Creatinine Ratio Ur 182.1 ug/mg cr (<30)
[2025-04-22 17:45] LABS: Alanine Aminotransferase 50 U/L (0-40); Albumin Level 4.8 g/dL (3.5-5.0); Alkaline Phosphatase 55 U/L (39-117); Anion Gap 13 (12-20); Aspartate Amino Transferase 46 U/L (5-37); Blood Urea Nitrogen 56 mg/dL (9-16); Calcium 9.6 mg/dL (8.4-10.2); Carbon Dioxide 24 mmol/L (22-29); Chloride 106 mmol/L (96-108); Cholesterol 137 mg/dL (<200); Estimated Glomerular Filt Rate 36; HDL Cholesterol 43 mg/dL (>40); Potassium 4.9 mmol/L (3.3-5.1); Sodium 138 mmol/L (135-145); Total Protein 7.6 g/dL (6.5-8.0); Triglycerides 165 mg/dL (<150)
== END 2025-04-22 08:35 | disposition home or self-care (01) ==
LOC: HO.CHCLDS 08:34
PROVIDERS: Visit Provider Family Medicine
DX: E11.8 Type 2 diabetes mellitus with unspecified complications (principal)
CPT/HCPCS: 36415; 80053; 80061; 82043; 82570; 85025